=== PATIENT | female | born 1975 | race Caucasian/White ===

== ENCOUNTER → 2016-08-30 | Outpatient (CLI) | payer OTHER | LOC: HYPER 07:05 | DX: T81.89XD Other complications of procedures, not elsewhere classified, subsequent encounter (principal); S51.002D Unspecified open wound of left elbow, subsequent encounter; M19.012 Primary osteoarthritis, left shoulder; M70.22 Olecranon bursitis, left elbow; I10 Essential (primary) hypertension; G40.909 Epilepsy, unspecified, not intractable, without status epilepticus; F32.9 Major depressive disorder, single episode, unspecified; X58.XXXD Exposure to other specified factors, subsequent encounter; Y83.8 Other surgical procedures as the cause of abnormal reaction of the patient, or of later complication, without mention of misadventure at the time of the procedure; F17.210 Nicotine dependence, cigarettes, uncomplicated ==

== ENCOUNTER → 2016-10-31 | Outpatient (CLI) | payer OTHER | LOC: HYPER 07:06 | DX: T81.89XD Other complications of procedures, not elsewhere classified, subsequent encounter (principal); M19.012 Primary osteoarthritis, left shoulder; I10 Essential (primary) hypertension; F32.9 Major depressive disorder, single episode, unspecified; F17.210 Nicotine dependence, cigarettes, uncomplicated; Y83.8 Other surgical procedures as the cause of abnormal reaction of the patient, or of later complication, without mention of misadventure at the time of the procedure ==